=== PATIENT | female | born 1940 | race Caucasian/White ===

== ENCOUNTER 2018-02-08 14:20 | Inpatient (IN) ==
[2018-02-08] MEDS ORDERED: PNEUMOCOCCAL VACCINE (13 VALENT) 0.5 ML SYRINGE IM ONE (18:02)
[2018-02-08] MEDS ORDERED: MORPHINE 4 MG/1 ML VIAL IV PRN (18:15)
[2018-02-08] MEDS ORDERED: KETOROLAC 30 MG/1 ML VIAL IV PRN (18:22)
[2018-02-08] MEDS ORDERED: ONDANSETRON 4 MG/2 ML VIAL IV PRN (18:25)
[2018-02-08] MEDS ORDERED: LEVOFLOXACIN INJ 750 MG in PREMIX 1 EACH IV SCH (18:30)
[2018-02-08] MEDS ORDERED: methylPREDNISolone SOD SUC 40 MG/1 ML VIAL IV ONE (18:51)
[2018-02-08 19:12] LABS: Basophils % 0.4 % (0.0-0.8); Eosinophils # 0.4 10*3/uL (0.0-0.87); Eosinophils % 3.6 % (0.00-10.9); Hematocrit 36.4 VOL% (35.7-47.0); Immature Granulocytes % 0.8 %; Immature Granulocytes Absolute 0.08 #; Lymphocytes # 2.7 10*3/uL (1.4-4.0); Lymphocytes % 25.9 % (21.3-54.2); Mean Corpuscular Hemoglobin 29 PG (27-34); Mean Corpuscular Volume 87.5 FL (87-102); Mean Platelet Volume 10.8 FL (9.6-12.0); Monocytes # 1.1 10*3/uL (0.11-0.8); Neutrophils # 6.3 10*3/uL (1.4-7.4); Neutrophils % 59.3 % (38.7-73.9); Platelet Count 262 T/CUMM (130-400); Red Blood Count 4.16 MC/CUMM (3.8-5.5); White Blood Count 10.6 T/CUMM (4-12)
[2018-02-08 19:33] LABS: Albumin 2.5 G/DL (3.4-5.0); Bilirubin,Total 0.8 MG/DL (0.2-1.0); Calcium 8.3 MG/DL (8.5-10.1); Osmolality,Calculated 280.3 MOS/KG (273-304); Potassium 3.6 MMOL/L (3.5-5.1); Total Protein 6.1 G/DL (6.4-8.3)
[2018-02-08] MEDS: AMITRIPTYLINE 25 MG TABLET PO SCH (20:26)
[2018-02-08] MEDS: clonazePAM 0.5 MG TABLET PO SCH (20:26)
[2018-02-08] MEDS: MULTIVITAMIN (OCUVITE) TABLET PO SCH (20:26)
[2018-02-08] MEDS: cefTRIAXone 1,000 MG in SYRINGE 1 EACH IV SCH (20:27)
[2018-02-08] MEDS: FAMOTIDINE INJ 40 MG in SODIUM CHLORIDE 0.9% 100 ML IV SCH (20:28)
[2018-02-08 21:56] LABS: Apearance,Urine CLOUDY (Clear); Bilirubin,Urine Negative (Negative); Blood, Urine Small mg/dL (Negative); Glucose,Urine (UA) Negative (Negative); Ketones,Urine Negative (Negative); Nitrite,Urine Positive (Negative); Protein,Urine 30 MG/DL; RBC,Urine 5 /HPF (0-4); Squamous Epithelial Cell,Urine Occasional /HPF (0-10); Urine Color Yellow (Yellow); Urine Specific Gravity 1.011 (1.001-1.035); Urine Urobilinogen < 2.0 EU/DL (0.2-1.0); WBC,Urine 926 /HPF (0-6)
[2018-02-09 04:42] LABS: Basophils % 0.3 % (0.0-0.8); Hematocrit 39.1 VOL% (35.7-47.0); Hemoglobin 13.1 GM/DL (12.0-16.0); Immature Granulocytes % 0.8 %; Immature Granulocytes Absolute 0.06 #; Lymphocytes # 1.3 10*3/uL (1.4-4.0); Lymphocytes % 18.8 % (21.3-54.2); Mean Corpuscular HGB Conc 33.5 GM/DL (32-36); Mean Corpuscular Hemoglobin 29 PG (27-34); Mean Corpuscular Volume 85.4 FL (87-102); Mean Platelet Volume 10.5 FL (9.6-12.0); Monocytes # 0.1 10*3/uL (0.11-0.8); Monocytes % 1.6 % (1.7-12.7); Neutrophils # 5.5 10*3/uL (1.4-7.4); Neutrophils % 78.5 % (38.7-73.9); Platelet Count 291 T/CUMM (130-400); Red Blood Count 4.58 MC/CUMM (3.8-5.5); Red Cell Distribution Width 15.1 % (9.3-17.3); White Blood Count 7.1 T/CUMM (4-12)
[2018-02-09 05:08] LABS: Calcium 8.5 MG/DL (8.5-10.1); Potassium 4.4 MMOL/L (3.5-5.1)
[2018-02-09] MEDS: amLODIPine 10 MG TABLET PO SCH (08:28)
[2018-02-09] MEDS: VALSARTAN 160 MG TABLET PO SCH (08:28)
[2018-02-09] MEDS: CHOLECALCIFEROL 5,000 UNIT TABLET PO SCH (08:28)
[2018-02-09] MEDS: MULTIVITAMIN (OCUVITE) TABLET PO SCH ×2 (08:28→20:17)
[2018-02-09] MEDS: VITAMIN E 1000 UNIT CAPSULE PO SCH (08:29)
[2018-02-09] MEDS: CARTEOLOL 1% OPH SOLN 5 ML BOTTLE RIGHT EYE SCH (08:29)
[2018-02-09] MEDS: FAMOTIDINE INJ 40 MG in SODIUM CHLORIDE 0.9% 100 ML IV SCH ×2 (08:59→20:34)
[2018-02-09 14:17] LABS: Albumin 2.5 G/DL (3.4-5.0); Bilirubin,Direct 0.18 MG/DL (0.0-0.20); Bilirubin,Indirect 0.2 MG/DL (0.0-1.0); Bilirubin,Total 0.4 MG/DL (0.2-1.0); Total Protein 6.5 G/DL (6.4-8.3)
[2018-02-09] MEDS: AMITRIPTYLINE 25 MG TABLET PO SCH (20:17)
[2018-02-09] MEDS: clonazePAM 0.5 MG TABLET PO SCH (20:17)
[2018-02-09] MEDS: cefTRIAXone 1,000 MG in SYRINGE 1 EACH IV SCH (20:24)
[2018-02-10 06:52] LABS: Basophils % 0.4 % (0.0-0.8); Eosinophils # 0.1 10*3/uL (0.0-0.87); Hematocrit 34.9 VOL% (35.7-47.0); Hemoglobin 11.8 GM/DL (12.0-16.0); Immature Granulocytes Absolute 0.11 #; Lymphocytes # 3.8 10*3/uL (1.4-4.0); Lymphocytes % 33.5 % (21.3-54.2); Mean Corpuscular HGB Conc 33.8 GM/DL (32-36); Mean Corpuscular Hemoglobin 29 PG (27-34); Mean Corpuscular Volume 84.5 FL (87-102); Mean Platelet Volume 10.9 FL (9.6-12.0); Monocytes # 1.1 10*3/uL (0.11-0.8); Monocytes % 9.8 % (1.7-12.7); Neutrophils # 6.2 10*3/uL (1.4-7.4); Neutrophils % 54.3 % (38.7-73.9); Platelet Count 335 T/CUMM (130-400); Red Blood Count 4.13 MC/CUMM (3.8-5.5); Red Cell Distribution Width 15.1 % (9.3-17.3); White Blood Count 11.4 T/CUMM (4-12)
[2018-02-10 07:24] LABS: Band Neutrophils 1 % (0-10); Eosinophils 2 % (0-10); Hypochromasia 1+; Lymphocytes 30 % (20-55); Segmented Neutrophils 58 % (50-85); Total Cells Counted 100
[2018-02-10 07:25] LABS: Albumin 2.4 G/DL (3.4-5.0); Bilirubin,Total 0.6 MG/DL (0.2-1.0); Calcium 7.8 MG/DL (8.5-10.1); Microcytosis Slight; Osmolality,Calculated 293.4 MOS/KG (273-304); Ovalocytes Slight; Platelet Estimate Normal; Potassium 3.6 MMOL/L (3.5-5.1); Total Protein 5.9 G/DL (6.4-8.3)
[2018-02-10] MEDS: FAMOTIDINE INJ 40 MG in SODIUM CHLORIDE 0.9% 100 ML IV SCH ×2 (08:47→20:02)
[2018-02-10] MEDS ORDERED: ASPIRIN EC 81 MG TABLET PO SCH (09:00)
[2018-02-10] MEDS ORDERED: TISSUE ADHESIVE 1 EACH APPLICATOR TOP ONE (10:30)
[2018-02-10] MEDS ORDERED: ROPIVACAINE 0.5% 30 ML VIAL ONE (10:30)
[2018-02-10] MEDS ORDERED: PROPOFOL 200 MG/20 ML VIAL IV ONE (12:14)
[2018-02-10] MEDS ORDERED: ONDANSETRON 4 MG/2 ML VIAL ONE (12:15)
[2018-02-10] MEDS ORDERED: fentaNYL 100 MCG/2 ML VIAL ONE (12:15)
[2018-02-10] MEDS ORDERED: MIDAZOLAM 2 MG/2 ML VIAL ONE (12:15)
[2018-02-10] MEDS ORDERED: DEXAMETHASONE 10 MG/1 ML VIAL ONE (12:15)
[2018-02-10] MEDS: CARTEOLOL 1% OPH SOLN 5 ML BOTTLE RIGHT EYE SCH (13:19)
[2018-02-10] MEDS: CHOLECALCIFEROL 5,000 UNIT TABLET PO SCH (13:19)
[2018-02-10] MEDS: VALSARTAN 160 MG TABLET PO SCH (13:19)
[2018-02-10] MEDS: MULTIVITAMIN (OCUVITE) TABLET PO SCH ×2 (13:19→20:04)
[2018-02-10] MEDS: VITAMIN E 1000 UNIT CAPSULE PO SCH (13:19)
[2018-02-10] MEDS: amLODIPine 10 MG TABLET PO SCH (13:19)
[2018-02-10] MEDS: clonazePAM 0.5 MG TABLET PO SCH (20:03)
[2018-02-10] MEDS: cefTRIAXone 1,000 MG in SYRINGE 1 EACH IV SCH (20:03)
[2018-02-10] MEDS: AMITRIPTYLINE 25 MG TABLET PO SCH (20:03)
[2018-02-11] MEDS: CARTEOLOL 1% OPH SOLN 5 ML BOTTLE RIGHT EYE SCH (09:44)
[2018-02-11] MEDS: MULTIVITAMIN (OCUVITE) TABLET PO SCH (09:45)
[2018-02-11] MEDS: CHOLECALCIFEROL 5,000 UNIT TABLET PO SCH (09:46)
[2018-02-11] MEDS: VALSARTAN 160 MG TABLET PO SCH (09:46)
[2018-02-11] MEDS: amLODIPine 10 MG TABLET PO SCH (09:46)
[2018-02-11] MEDS: VITAMIN E 1000 UNIT CAPSULE PO SCH (09:47)
[2018-02-11] MEDS: FAMOTIDINE INJ 40 MG in SODIUM CHLORIDE 0.9% 100 ML IV SCH (09:47)
[2018-02-11 12:11] VITALS: BP 156/71
== END 2018-02-11 15:50 | disposition home health service (06) | DRG 479 ==
LOC: N.2E 16:59
PROVIDERS: ADMIT Internal Medicine; ATTEND Internal Medicine

== ENCOUNTER 2022-06-16 14:22 | Inpatient (IN) ==
[2022-06-16] MEDS ORDERED: SODIUM CHLORIDE 0.9% 1,000 ML IV STA (15:01)
[2022-06-16] MEDS ORDERED: ONDANSETRON 4 MG/2 ML VIAL IV STA (15:01)
[2022-06-16] MEDS ORDERED: HYDROmorphone 1 MG/1 ML SYRINGE IV STA (15:01)
[2022-06-16] MEDS ORDERED: ACETAMINOPHEN 325 MG TABLET PO PRN (16:19)
[2022-06-16] MEDS ORDERED: ONDANSETRON 4 MG/2 ML VIAL IV PRN (16:19)
[2022-06-16 16:49] LABS: Bacteria,Urine Occasional /HPF (Few); Bilirubin,Urine Negative (Negative); Blood, Urine Trace mg/dL (Negative); Glucose,Urine (UA) Negative (Negative); Ketones,Urine Trace mg/dL (Negative); Mucus,Urine Occasional /LPF (Occasional); Nitrite,Urine Negative (Negative); Protein,Urine Negative (Negative); RBC,Urine 7 /HPF (0-4); Urine Appearance Cloudy (Clear); Urine Color Yellow (Yellow); Urine Urobilinogen 0.2 eU/dL (<2.0); Urine pH 7.5 (4.5-8.0)
[2022-06-16 17:14] LABS: Barbiturates Screen,Urine Negative (Negative); Benzodiazepines Screen,Urine Negative (Negative); Cannabinoid Screen,Urine Negative (Negative); Opiate Screen,Urine Positive (Negative); Phencyclidine Screen,Urine Negative (Negative)
[2022-06-16 18:21] LABS: Basophils % 0.4 % (0.0-0.8); Eosinophils # 0.1 10*3/uL (0.0-0.87); Eosinophils % 0.8 % (0.00-10.9); Hematocrit 39.9 VOL% (35.7-47.0); Hemoglobin 12.7 GM/DL (12.0-16.0); Immature Granulocytes % 0.7 %; Immature Granulocytes Absolute 0.07 #; Lymphocytes # 1.9 10*3/uL (1.4-4.0); Lymphocytes % 19.7 % (21.3-54.2); Mean Corpuscular HGB Conc 31.8 GM/DL (32-36); Mean Corpuscular Volume 87.7 FL (87-102); Mean Platelet Volume 10.3 FL (9.6-12.0); Monocytes # 0.9 10*3/uL (0.11-0.8); Monocytes % 9.9 % (1.7-12.7); Neutrophils % 68.5 % (38.7-73.9); Platelet Count 279 T/CUMM (130-400); Red Blood Count 4.55 MC/CUMM (3.8-5.5); Red Cell Distribution Width 14.6 % (9.3-17.3); White Blood Count 9.5 T/CUMM (4-12)
[2022-06-16 18:32] LABS: PT Patient Result 10.8 SECS (10.1-12.1); Partial Thromboplastin Time 27.2 SECS (23.7-32.9)
[2022-06-16 18:49] LABS: Albumin 2.8 G/DL (3.4-5.0); Bilirubin,Total 0.6 MG/DL (0.20-1.00); Calcium 8.2 MG/DL (8.5-10.1); Osmolality,Calculated 286.7 MOS/KG (273-304); Potassium 3.8 MMOL/L (3.5-5.1)
[2022-06-16] MEDS: cefTRIAXone 1,000 MG in SODIUM CHLORIDE 0.9% 100 ML IV SCH (21:27)
[2022-06-16] MEDS: HYDROmorphone 1 MG/1 ML SYRINGE IV PRN (22:28)
[2022-06-17 06:09] LABS: Basophils % 0.4 % (0.0-0.8); Eosinophils % 0.3 % (0.00-10.9); Hematocrit 39.3 VOL% (35.7-47.0); Hemoglobin 12.4 GM/DL (12.0-16.0); Immature Granulocytes % 0.4 %; Immature Granulocytes Absolute 0.04 #; Lymphocytes # 1.9 10*3/uL (1.4-4.0); Lymphocytes % 17.2 % (21.3-54.2); Mean Corpuscular HGB Conc 31.6 GM/DL (32-36); Mean Corpuscular Volume 88.7 FL (87-102); Mean Platelet Volume 10.5 FL (9.6-12.0); Monocytes # 1.5 10*3/uL (0.11-0.8); Monocytes % 13.8 % (1.7-12.7); Neutrophils % 67.9 % (38.7-73.9); Platelet Count 289 T/CUMM (130-400); Red Blood Count 4.43 MC/CUMM (3.8-5.5); Red Cell Distribution Width 14.7 % (9.3-17.3); White Blood Count 11.2 T/CUMM (4-12)
[2022-06-17] MEDS: HYDROmorphone 1 MG/1 ML SYRINGE IV PRN ×3 (06:26→23:09)
[2022-06-17 06:35] LABS: Albumin 2.9 G/DL (3.4-5.0); Bilirubin,Total 0.9 MG/DL (0.20-1.00); Calcium 9.1 MG/DL (8.5-10.1); Potassium 3.9 MMOL/L (3.5-5.1); Total Protein 6.3 G/DL (6.4-8.2)
[2022-06-17] MEDS: PANTOPRAZOLE 40 MG TABLET PO SCH (08:26)
[2022-06-17] MEDS ORDERED: ceFAZolin 2,000 MG/50 ML DUPLEX IV ONE (10:18)
[2022-06-17] MEDS: LACTATED RINGERS 1,000 ML IV SCH ×2 (11:23→14:32)
[2022-06-17] MEDS ORDERED: buprenorphine HCL 0.3 MG/ML VIAL ONE (11:29)
[2022-06-17] MEDS ORDERED: DEXAMETHASONE 4 MG/1 ML VIAL ONE (11:29)
[2022-06-17] MEDS ORDERED: ROPIVACAINE 0.5% 30 ML VIAL ONE (11:29)
[2022-06-17] MEDS ORDERED: BUPIVACAINE SPINAL 0.75% 2 ML AMP SPINAL ONE (11:33)
[2022-06-17] MEDS ORDERED: fentaNYL 100 MCG/2 ML VIAL ONE (11:33)
[2022-06-17] MEDS ORDERED: LIDOCAINE 2% 5 ML VIAL ONE (11:33)
[2022-06-17] MEDS ORDERED: propofoL 200 MG/20 ML VIAL IV ONE (11:33)
[2022-06-17] MEDS ORDERED: PHENYLEPHRINE 1 MG/10 ML SYRINGE IV ONE (11:33)
[2022-06-17] MEDS ORDERED: KETAMINE 500 MG/10 ML VIAL ONE (11:33)
[2022-06-17] MEDS ORDERED: MIDAZOLAM 2 MG/2 ML VIAL ONE (11:34)
[2022-06-17] MEDS ORDERED: BISACODYL 10 MG SUPP RECTAL PRN (12:19)
[2022-06-17] MEDS ORDERED: diphenhydrAMINE CAP 25 MG CAPSULE PO PRN (12:19)
[2022-06-17] MEDS ORDERED: LACTULOSE 20 GM/30 ML UDCUP PO PRN (12:19)
[2022-06-17] MEDS: cefTRIAXone 1,000 MG in SODIUM CHLORIDE 0.9% 100 ML IV SCH (21:14)
[2022-06-17] MEDS: AMITRIPTYLINE 25 MG TABLET PO SCH (21:14)
[2022-06-17] MEDS: GABAPENTIN 100 MG CAPSULE PO SCH (21:14)
[2022-06-18 04:32] LABS: Basophils % 0.2 % (0.0-0.8); Hematocrit 36.2 VOL% (35.7-47.0); Hemoglobin 11.3 GM/DL (12.0-16.0); Immature Granulocytes % 0.6 %; Immature Granulocytes Absolute 0.07 #; Lymphocytes # 1.5 10*3/uL (1.4-4.0); Lymphocytes % 12.8 % (21.3-54.2); Mean Corpuscular HGB Conc 31.2 GM/DL (32-36); Mean Corpuscular Volume 88.5 FL (87-102); Mean Platelet Volume 10.7 FL (9.6-12.0); Monocytes # 1.4 10*3/uL (0.11-0.8); Monocytes % 11.3 % (1.7-12.7); Neutrophils % 75.1 % (38.7-73.9); Platelet Count 243 T/CUMM (130-400); Red Blood Count 4.09 MC/CUMM (3.8-5.5); Red Cell Distribution Width 14.6 % (9.3-17.3)
[2022-06-18 04:50] LABS: Calcium 8.4 MG/DL (8.5-10.1); Osmolality,Calculated 293.4 MOS/KG (273-304)
[2022-06-18] MEDS: FONDAPARINUX 2.5 MG/0.5 ML SYRINGE SUBCUT SCH (05:34)
[2022-06-18] MEDS: CHOLECALCIFEROL 5,000 UNIT TABLET PO SCH (08:17)
[2022-06-18] MEDS: PANTOPRAZOLE 40 MG TABLET PO SCH ×2 (08:17→10:02)
[2022-06-18] MEDS: predniSONE 5 MG TABLET PO SCH (08:17)
[2022-06-18] MEDS: GABAPENTIN 100 MG CAPSULE PO SCH ×2 (08:17→20:38)
[2022-06-18] MEDS: FOLIC ACID 1 MG TABLET PO SCH (08:17)
[2022-06-18] MEDS: LOSARTAN 50 MG TABLET PO SCH (08:17)
[2022-06-18] MEDS ORDERED: hydroCHLOROthiazide 12.5 MG CAPSULE PO SCH (09:00)
[2022-06-18] MEDS: CARTEOLOL 1% OPH SOLN 5 ML BOTTLE RIGHT EYE SCH (10:01)
[2022-06-18] MEDS: SODIUM CHLORIDE 0.45% 1,000 ML IV SCH (15:05)
[2022-06-18] MEDS ORDERED: TUBERCULIN SKIN TEST 0.1 ML SYRINGE INTRADERM ONE (16:33)
[2022-06-18] MEDS: cefTRIAXone 1,000 MG in SODIUM CHLORIDE 0.9% 100 ML IV SCH (20:37)
[2022-06-18] MEDS: AMITRIPTYLINE 25 MG TABLET PO SCH (20:38)
[2022-06-19] MEDS: HYDROmorphone 1 MG/1 ML SYRINGE IV PRN (03:53)
[2022-06-19 05:41] LABS: Basophils % 0.3 % (0.0-0.8); Eosinophils # 0.2 10*3/uL (0.0-0.87); Eosinophils % 1.5 % (0.00-10.9); Hematocrit 29.4 VOL% (35.7-47.0); Immature Granulocytes % 0.7 %; Immature Granulocytes Absolute 0.08 #; Lymphocytes # 2.3 10*3/uL (1.4-4.0); Lymphocytes % 19.6 % (21.3-54.2); Mean Corpuscular HGB Conc 30.6 GM/DL (32-36); Mean Corpuscular Volume 90.2 FL (87-102); Mean Platelet Volume 10.8 FL (9.6-12.0); Monocytes # 1.5 10*3/uL (0.11-0.8); Monocytes % 12.2 % (1.7-12.7); Neutrophils % 65.7 % (38.7-73.9); Platelet Count 218 T/CUMM (130-400); Red Blood Count 3.26 MC/CUMM (3.8-5.5); Red Cell Distribution Width 14.7 % (9.3-17.3); White Blood Count 11.9 T/CUMM (4-12)
[2022-06-19] MEDS: FONDAPARINUX 2.5 MG/0.5 ML SYRINGE SUBCUT SCH (05:42)
[2022-06-19 05:55] LABS: Calcium 7.7 MG/DL (8.5-10.1); Osmolality,Calculated 290.7 MOS/KG (273-304); Potassium 3.4 MMOL/L (3.5-5.1)
[2022-06-19] MEDS: CHOLECALCIFEROL 5,000 UNIT TABLET PO SCH (09:08)
[2022-06-19] MEDS: LOSARTAN 50 MG TABLET PO SCH (09:08)
[2022-06-19] MEDS: CARTEOLOL 1% OPH SOLN 5 ML BOTTLE RIGHT EYE SCH (09:08)
[2022-06-19] MEDS: predniSONE 5 MG TABLET PO SCH (09:08)
[2022-06-19] MEDS: PANTOPRAZOLE 40 MG TABLET PO SCH ×2 (09:08→09:48)
[2022-06-19] MEDS: GABAPENTIN 100 MG CAPSULE PO SCH ×2 (09:09→21:15)
[2022-06-19] MEDS: MAGNESIUM HYDROXIDE SUSP 30 ML UDCUP PO PRN ×2 (09:09→21:16)
[2022-06-19] MEDS: FOLIC ACID 1 MG TABLET PO SCH (09:09)
[2022-06-19] MEDS: cefTRIAXone 1,000 MG in SODIUM CHLORIDE 0.9% 100 ML IV SCH (11:31)
[2022-06-19] MEDS: SODIUM CHLORIDE 0.45% 1,000 ML IV SCH ×3 (12:37→21:15)
[2022-06-19 17:18] LABS: Hematocrit 30.7 VOL% (35.7-47.0); Hemoglobin 9.4 GM/DL (12.0-16.0)
[2022-06-19] MEDS: AMITRIPTYLINE 25 MG TABLET PO SCH (21:15)
[2022-06-19 22:55] LABS: Hematocrit 27.5 VOL% (35.7-47.0); Hemoglobin 8.8 GM/DL (12.0-16.0)
[2022-06-20 05:16] LABS: Hematocrit 28.6 VOL% (35.7-47.0)
[2022-06-20 05:17] LABS: Basophils # 0.1 10*3/uL (0.0-0.2); Basophils % 0.6 % (0.0-0.8); Eosinophils # 0.4 10*3/uL (0.0-0.87); Hematocrit 28.4 VOL% (35.7-47.0); Hemoglobin 8.9 GM/DL (12.0-16.0); Immature Granulocytes % 0.8 %; Immature Granulocytes Absolute 0.07 #; Lymphocytes # 2.5 10*3/uL (1.4-4.0); Lymphocytes % 27.5 % (21.3-54.2); Mean Corpuscular HGB Conc 31.3 GM/DL (32-36); Mean Corpuscular Volume 88.8 FL (87-102); Mean Platelet Volume 10.8 FL (9.6-12.0); Neutrophils % 56.1 % (38.7-73.9); Platelet Count 217 T/CUMM (130-400); Red Cell Distribution Width 14.8 % (9.3-17.3); White Blood Count 9.1 T/CUMM (4-12)
[2022-06-20 05:34] LABS: Calcium 7.9 MG/DL (8.5-10.1); Osmolality,Calculated 287.7 MOS/KG (273-304); Potassium 4.1 MMOL/L (3.5-5.1)
[2022-06-20] MEDS: SODIUM CHLORIDE 0.45% 1,000 ML IV SCH (06:38)
[2022-06-20] MEDS: FONDAPARINUX 2.5 MG/0.5 ML SYRINGE SUBCUT SCH (06:40)
[2022-06-20] MEDS: FOLIC ACID 1 MG TABLET PO SCH (08:07)
[2022-06-20] MEDS: LOSARTAN 50 MG TABLET PO SCH (08:07)
[2022-06-20] MEDS: PANTOPRAZOLE 40 MG TABLET PO SCH ×2 (08:07→09:52)
[2022-06-20] MEDS: predniSONE 5 MG TABLET PO SCH (08:07)
[2022-06-20] MEDS: CHOLECALCIFEROL 5,000 UNIT TABLET PO SCH (08:07)
[2022-06-20] MEDS: GABAPENTIN 100 MG CAPSULE PO SCH (08:07)
[2022-06-20] MEDS: CARTEOLOL 1% OPH SOLN 5 ML BOTTLE RIGHT EYE SCH (09:52)
[2022-06-20] MEDS ORDERED: TUBERCULIN SKIN TEST 0.1 ML SYRINGE INTRADERM ONE (11:00)
[2022-06-20 11:29] VITALS: BP 137/66
[2022-06-20] MEDS: cefTRIAXone 1,000 MG in SODIUM CHLORIDE 0.9% 100 ML IV SCH (11:45)
[2022-06-21] MEDS ORDERED: ASPIRIN EC 81 MG TABLET PO SCH (09:00)
== END 2022-06-20 14:40 | DRG 481 ==
LOC: EDBD → EDUNIT# → EDSEX → N.ED 14:22 → SUATTDRO 16:19 → N.3E 16:19
PROVIDERS: ADMIT Internal Medicine; ATTEND Internal Medicine